=== PATIENT | female | born 1995 | race Caucasian/White ===

== ENCOUNTER 2018-09-02 12:33 | Emergency (ER) | payer OTHER ==
[~2018-09-02] VITALS: Ht 165.1 cm; Wt 57.6 kg
--- NOTE | 2018-09-02 12:45 | NUR ---
PT FROM FROM C/O FEVER X 2 DAYS. NO COUGH, N/V. PT AOX4. PT IN BED 4 ON MONITOR. WILL CONTINUE TO MONITOR.
--- NOTE | 2018-09-02 12:46 | NUR ---
URINE COLLECTED AND SENT TO LAB
[2018-09-02] MEDS ORDERED: ACETAMINOPHEN ES 500 MG TABLET ONE (12:56)
[2018-09-02] MEDS ORDERED: IBUPROFEN 600 MG TABLET PO ONE ×2 (12:56→13:00)
[2018-09-02] MEDS ORDERED: ACETAMINOPHEN ES 500 MG TABLET PO ONE (13:00)
[2018-09-02 13:07] LABS: APPEARANCE,URINE CLEAR (CLEAR); BILIRUBIN,URINE 1+ (NEGATIVE); BLOOD, URINE 2+ Ery/uL (NEGATIVE); COLOR,URINE YELLOW (YELLOW); KETONES,URINE 3+ (NEGATIVE); LEUKOCYTE ESTERASE ,URINE NEGATIVE (NEGATIVE); NITRITE, URINE NEGATIVE (NEGATIVE); PROTEIN,URINE NEGATIVE (NEGATIVE); UGLUCOSE NEGATIVE (NEGATIVE); UROBILINOGEN,URINE 0.2 EU/dL (0.2)
[2018-09-02 13:15] LABS: RBC,URINE 81-100 /HPF (0-2)
[2018-09-02 13:16] LABS: BACTERIA,URINE 1+ /HPF (None Seen); SQUAMOUS EPITHELIAL CELL,UR Few /HPF (None Seen); WBC,URINE 0-2 /HPF (0-3)
--- NOTE | 2018-09-02 13:24 | NUR ---
TECH AT BEDSIDE FOR EKG
[2018-09-02] MEDS ORDERED: IV NS 0.9% 1,000 ML BAG IV ONE (13:30)
--- NOTE | 2018-09-02 13:30 | NUR ---
BLOOD DRAWN AND GIVEN TO LAB
[2018-09-02 13:44] LABS: BASOPHILS % (AUTO) 0.2 % (0.0-2.0); EOSINOPHILS % (AUTO) 0.1 % (0.0-6.0); HEMATOCRIT 41 % (33-45); LYMPHOCYTES % (AUTO) 7.4 % (20.0-44.0); MEAN CORPUSCULAR HGB CONC 34 g/dl (31.0-36.0); MEAN CORPUSCULAR VOLUME 92 fL (82-100); MONOCYTES # (AUTO) 1.9 /CMM (0.1-1.30); MONOCYTES % (AUTO) 14.8 % (2.0-12.0); NEUTROPHILS # (AUTO) 10.2 /CMM (1.8-8.9); NEUTROPHILS % (AUTO) 77.5 % (43.0-81.0); PLATELET COUNT (AUTO) 253 /CMM (150-450); RED BLOOD CELL COUNT(AUTO) 4.44 MIL/uL (4.0-5.2); WHITE BLOOD COUNT (AUTO) 13.1 K/uL (4.3-11.0)
[2018-09-02 13:50] LABS: CALCIUM, SERUM 8.8 mg/dL (8.5-10.1); CREATININE 0.7 mg/dL (0.6-1.3); POTASSIUM 3.9 mmol/L (3.5-5.1)
[2018-09-02 13:56] LABS: ALBUMIN 3.6 g/dL (3.4-5.0); BILIRUBIN,TOTAL 0.8 mg/dL (0.2-1.0); TOTAL PROTEIN, SERUM 7.4 g/dL (6.4-8.2)
--- NOTE | 2018-09-02 14:26 | NUR ---
Patient is resting comfortably in bed with FAMILY AT BEDSIDE. Easily aroused. VSS
--- NOTE | 2018-09-02 15:15 | NUR ---
IV removed. Catheter intact and site benign. Pressure and 4x4 applied to site. No bleeding noted.Patient discharged to home in stable condition. Written and verbal after care instructions given. Patient verbalizes understanding of instruction.
[2018-09-02 15:18] VITALS: BP 106/65
== END 2018-09-02 15:19 | disposition home or self-care (01) ==
LOC: ER 12:37
DX: B34.9 Viral infection, unspecified (principal); R50.9 Fever, unspecified; R00.0 Tachycardia, unspecified
CPT/HCPCS: 36415; 80053-TC; 81000-TC; 84703-TC; 85025-TC; 87400; A4606; J7030